=== PATIENT | male | born 1990 | race Caucasian/White ===

== ENCOUNTER 2018-09-19 09:55 | Emergency (ER) | payer MEDICARE, OTHER ==
[2018-09-19 10:05] VITALS: BP 131/74
--- NOTE | 2018-09-19 10:27 | ER Document Report ---
HPI - HPI Patient complains to provider of: right eye vision problems Time Seen by Provider: 09/19/18 10:12 Pain Level: 0 Context: Patient is a otherwise healthy 28-year-old male presents to the emergency department for right eye vision loss. Patient states in 2012 he had a partial retinal detachment. 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 Patient states his vision has not changed, increased, decreased, pain in his right eye since 2012. Patient states he is actually unsure why the [facility]. Patient states they told him he needed to see an canal boat captain in the [facility] suggested going to the emergency room would be the fastest way to get into an canal boat captain office. Again, patient's denying any changes in patient's right eye vision since 2012 when this retinal detachment happened. Patient's denying any eye pain. Is denying any foreign body sensations in the eyes. - EENT EENT: REPORTS: Eye problems - R eye Past Medical History - General Information source: Patient - Social History Smoking Status: Unknown if Ever Smoked Family History: Reviewed & Not Pertinent Patient has suicidal ideation: No Patient has homicidal ideation: No Renal/ Medical History: Denies: Hx Peritoneal Dialysis Past Surgical History: Reports: Hx Orthopedic Surgery - L shoulder Vertical Provider Document - CONSTITUTIONAL Agree With Documented VS: Yes Notes: GENERAL: Alert, interacts well. No acute distress. HEAD: Normocephalic, atraumatic. EYES: Pupils equal, round, and reactive to light. Extraocular movements intact. No proptosis, no conjunctival injection noted bilaterally. ENT: Oral mucosa moist, tongue midline. NECK: Full range of motion. Supple. Trachea midline. LUNGS: Clear to auscultation bilaterally, no wheezes, rales, or rhonchi. No respiratory distress. HEART: Regular rate and rhythm. No murmur ABDOMEN: Soft, non-tender. Non-distended. Bowel sounds present in all 4 quadrants. EXTREMITIES: Moves all 4 extremities spontaneously. No edema, normal radial and dorsalis pedis pulses bilaterally. No cyanosis. BACK: no cervical, thoracic, lumbar midline tenderness. No saddle anesthesia, normal distal neurovascular exam. NEUROLOGICAL: Alert and oriented x3. Normal speech. cranial nerves II through XII grossly intact. PSYCH: Normal affect, normal mood. SKIN: Warm, dry, normal turgor. No rashes or lesions noted. - INFECTION CONTROL TRAVEL OUTSIDE OF THE [place] IN LAST 30 DAYS: No Course - Re-evaluation Re-evalutation: Upon my arrival to patient room he is playing on his cell phone in no apparent distress. 09/19/18 10:24 I discussed this case with my attending Dr. uLi. Based on the fact that patient has had no change in his vision since 2012 when the retinal detachment happened there is no need to emergently call ophthalmology. We also do not have ophthalmology conduit cleaner at this facility today. I discussed with patient need to follow-up outpatient with ophthalmology, phone numbers will be provided. At this time will discharge with return precautions and follow-up recommendations. Verbal discharge instructions given a the bedside and opportunity for questions given. Medication warnings reviewed. Patient is in agreement with this plan and has verbalized understanding of return precautions and the need for primary care follow-up in the next 24-72 hours. This medical record was dictated with voice recognizing software. There may be grammatical, syntax errors that are unintended. - Vital Signs Vital signs: Temp Pulse Resp BP Pulse Ox 97.6 F 80 16 131/74 H 97 09/19/18 10:04 09/19/18 10:04 09/19/18 10:04 09/19/18 10:04 09/19/18 10:04 Discharge - Discharge Clinical Impression: Vision loss of right eye Condition: Stable Disposition: HOME, SELF-CARE Additional Instructions: As we discussed you have been seen and treated in the emergency department for a chronic right eye vision loss. I have provided phone numbers for ophthalmology within this packet. Please call the my earliest convenience. Please also make sure you return to the emergency rooms should anything change with your vision. Please also return to the emergency room for any further concerns. Referrals: EMI PEREZ DO [ACTIVE STAFF] - Follow up as needed
== END 2018-09-19 10:32 | disposition home or self-care (01) ==
LOC: ER 09:55
DX: H54.61 Unqualified visual loss, right eye, normal vision left eye (principal)
CPT/HCPCS: 99283